=== PATIENT | female | born 1955 | race Hispanic/Latino ===

== ENCOUNTER 2016-08-15 07:10 | Outpatient (CLI) | payer BC ==
[2016-08-15 08:12] LABS: #Basophils 0.1 thou/uL (0.0-0.2); #Eosinphils 0.2 thou/uL (0.0-0.7); #Monocytes 0.5 thou/uL (0.11-0.59); #Neutrophils 2.9 thou/uL (1.40-6.50); %Eosinophils 2.8 % (0.0-10.0); %Lymphocytes 45.1 % (21.0-51.0); %Monocytes 6.9 % (0.0-10.0); Hematocrit 43.5 % (36.0-47.0); Mean Platelet Volume 9.6 fL (7.4-10.4); Red Blood Cell (RBC) Count 4.71 mill/uL (4.20-5.40); White Blood Cell (WBC) Count 6.6 thou/uL (4.8-10.8)
[2016-08-15 08:26] LABS: ALT (SGPT) 22 U/L (0-55); AST (SGOT) 16 U/L (5-34); Alkaline Phosphatase 74 U/L (40-150); Anion Gap 13 mmol/L (10-20); BUN (Urea Nitrogen) 15 mg/dL (9.8-20.1); Bilirubin, Total 0.4 mg/dL (0.2-1.2); Calc. Creatinine Clearance 0 mL/min (70-130); Calcium 9.6 mg/dL (7.8-10.44); Carbon Dioxide 28 mmol/L (22-29); Chloride 106 mmol/L (98-107); Estimated GFR-MDRD 69; Globulin 3.2 g/dL (2.4-3.5); LDL Cholesterol, Calculated 174 mg/dL; Protein, Total 7.2 g/dL (6.0-8.3)
[2016-08-15 09:50] LABS: Bilirubin Negative (Negative); Blood, Urine Negative (Negative); Glucose, Urine (Dipstick) Negative (Negative); Ketone, Urine Negative (Negative); Nitrite Negative (Negative); Protein, Urine (Dipstick) Negative (Neg-Trace); Urobilinogen 0.2 mg/dL (0.2-1.0)
[2016-08-15 10:09] LABS: Bacteria/HPF 1+ HPF (None Seen); RBC/HPF 0-3 HPF (0-3); Squamous Epithelial 21-50 HPF (0-3)
== END 2016-08-15 07:11 | disposition home or self-care (01) ==
LOC: NAV LAB 07:10
PROVIDERS: ATTEND Family Medicine
DX: Z00.00 Encounter for general adult medical examination without abnormal findings (principal); E03.9 Hypothyroidism, unspecified
CPT/HCPCS: 36415; 80053; 80061; 81001; 84439; 84443; 85025

== ENCOUNTER 2020-03-14 19:31 | Emergency (ER) | payer OTHER, SELFPAY ==
[2020-03-14] MEDS ORDERED: Fentanyl 100 MCG/2 ML VIAL ONE (19:45)
[2020-03-14] MEDS ORDERED: Ondansetron PF 4 MG/2 ML Vial ONE (19:45)
[2020-03-14 20:05] LABS: #Basophils 0.1 thou/uL (0.0-0.2); #Eosinphils 0.1 thou/uL (0.0-0.7); #Lymphocytes 3.4 thou/uL (1.20-3.40); #Monocytes 0.9 thou/uL (0.11-0.59); #Neutrophils 8.2 thou/uL (1.40-6.50); %Basophils 0.7 % (0.0-1.0); %Eosinophils 0.7 % (0.0-10.0); %Lymphocytes 26.9 % (21.0-51.0); %Monocytes 6.8 % (0.0-10.0); %Neutrophils 64.9 % (42.0-75.0); Hemoglobin 14.2 g/dL (12.0-16.0); Mean Corpuscular HGB CONC 31.8 g/dL (32.0-36.0); Mean Corpuscular Hemoglobin 30.2 pg (27.0-31.0); Mean Corpuscular Volume 95.1 fL (78.0-98.0); Platelet Count 237 thou/uL (130-400); RBC Distribution Width 12.5 % (11.5-14.5); Red Blood Cell (RBC) Count 4.69 mill/uL (4.20-5.40); White Blood Cell (WBC) Count 12.6 thou/uL (4.8-10.8)
[2020-03-14 20:20] LABS: ALT (SGPT) 277 U/L (8-55); AST (SGOT) 257 U/L (5-34); Albumin 4.2 g/dL (3.4-4.8); Alkaline Phosphatase 152 U/L (40-110); Anion Gap 17 mmol/L (10-20); BUN (Urea Nitrogen) 13 mg/dL (9.8-20.1); Bilirubin, Total 2.9 mg/dL (0.2-1.2); Calc. Creatinine Clearance 0 mL/min (70-130); Calcium 9.6 mg/dL (7.8-10.44); Carbon Dioxide 23 mmol/L (23-31); Chloride 103 mmol/L (98-107); Estimated GFR-MDRD 48; Globulin 2.7 g/dL (2.4-3.5); Glucose 174 mg/dL (80-115); Potassium 3.5 mmol/L (3.5-5.1); Protein, Total 6.9 g/dL (6.0-8.3); Sodium 139 mmol/L (136-145)
--- NOTE | 2020-03-14 20:29 | RAD ---
CHEST ONE VIEW: History: Upper abdominal pain, nausea, vomiting. FINDINGS: Normal cardiac silhouette. The pulmonary vessels and hilum are normal. Costophrenic angles are clear. No consolidation or mass. No pneumothorax or acute osseous abnormalities. IMPRESSION: No acute cardiopulmonary process. POS: PPP
[2020-03-14] MEDS ORDERED: Sodium Chloride 0.9% 100 ML ONE (21:12)
[2020-03-14] MEDS ORDERED: cefTRIAXone\\ROCEPHIN 2 GM VIAL ONE (21:12)
[2020-03-14 21:21] LABS: Lipase 11120 U/L (8-78)
== END 2020-03-14 21:23 | disposition short-term general hospital (02) ==
LOC: NAV ERS 19:31
DX: K85.90 Acute pancreatitis without necrosis or infection, unspecified (principal); I10 Essential (primary) hypertension; E03.9 Hypothyroidism, unspecified; E78.5 Hyperlipidemia, unspecified; Z79.899 Other long term (current) drug therapy
CPT/HCPCS: 71045; 80053; 83605; 83690; 84484; 85025; 93005; 96361; 96374; 96375; J0696; J2405; J3010; J3490